=== PATIENT | male | born 1955 | race Caucasian/White ===

== ENCOUNTER 2016-10-08 15:06 | Emergency (ER) | payer OTHER ==
--- NOTE | 2016-10-08 15:30 | UCPHY ---
H & P Patient Type: Established Chief Complaint Nursing Narrative: c/o lower abd pain last night while sleeping - had freq normal BM's Time Seen by Provider: 10/08/16 15:29 HPI/ROS: 61-year-old male with a history of multiple episodes of diverticulitis last one in April 2015 presents complaining of lower abdominal pain that began last night. He states it is painful with bowel movements and with urination. He denies nausea vomiting diarrhea. He denies fever or chills Review of systems As per HPI General no fever no chills no weakness HEENT no eye pain no eye discharge. No eye redness, no sore throat Respiratory no cough, no shortness of breath Cardiac no chest pain, no peripheral edema GI positive abdominal pain, no diarrhea, no constipation, no nausea, no vomiting no flank pain, no hematuria, no dysuria Musculoskeletal no myalgias, no joint pain Heme no easy bruising, no easy bleeding Endo no polyuria, no polydipsia Skin no rashes, no pruritus Neuro no syncope, no dizziness, no headaches Psych is no suicidal ideation, no homicidal ideation Source: Patient Exam Limitations: No limitations - Personal History Current Tetanus Diphtheria and Acellular Pertussis (TDAP): Yes Tetanus Vaccine Date: 2011 - Medical/Surgical History Hx Asthma: No Hx Chronic Respiratory Disease: No Hx Diabetes: No Hx Cardiac Disease: Yes Hx Renal Disease: No Hx Cirrhosis: No Hx Alcoholism: No Hx HIV/AIDS: No Hx Splenectomy or Spleen Trauma: No Other PMH: REFLUX,DIVERTICULITIS, hyperlipidemia, depression - Family History Significant Family History: No pertinent family hx - Social History Smoking Status: Former smoker Alcohol Use: Occasionally Drug Use: None - Physical Exam Exam: 61-year-old male alert and oriented no acute distress nontoxic appearance afebrile HEENT atraumatic normocephalic, extraocular muscles intact, anicteric Oropharynx negative for erythema negative exudate, tolerating her own secretions Neck supple no meningismus Lungs clear to auscultation bilaterally Heart regular rate and rhythm without murmur rub or gallop Abdomen nondistended normoactive bowel sounds soft, positive left lower quadrant tenderness no guarding no rebound no pulsatile mass Back no CVA tenderness, no step-offs, no spinal tenderness Extremities no cyanosis clubbing or edema Neuro alert and oriented, no focal deficits Constitutional: Initial Vital Signs Temperature (C) 36.6 C 10/08/16 15:19 Heart Rate 69 10/08/16 15:19 Respiratory Rate 18 10/08/16 15:19 Blood Pressure 149/92 H 10/08/16 15:19 O2 Sat (%) 97 10/08/16 15:19 O2 Delivery Mode Room Air Allergies/Adverse Reactions: Penicillins Allergy (Verified 04/10/15 23:15) Home Medications: Medication Instructions Recorded Fluoxetine 04/10/15 Omeprazole 04/10/15 SIMVASTATIN 04/10/15 metroNIDAZOLE [Flagyl 500 mg (*)] 500 mg PO Q6 #80 tab 04/11/15 Hydrocodone/Acetaminophen [[place] 1 - 2 tab PO Q6H PRN #20 tab 10/08/16 5/325 (*)] Medical Decision Making - Diagnostics Imaging Results: Imaging Impressions Abdomen CT 10/08/16 16:35 Impression: 1. Sigmoid diverticulitis just distal to the location of previous diverticulitis from March,. No peridiverticular abscess. 2. Mild hepatic steatosis Findings discussed with Vani Tierney MD at 17:06 hour, 10/08/2016. ED Course/Re-evaluation: Patient seen and evaluated for lower abdominal pain with prior history of diverticulitis IV established lab sent 1 L normal saline given morphine 4 mg given Labs revealed slightly elevated white blood cell count with a normal shift Normal CMP normal lipase Normal urinalysis CT abdomen positive for diverticulitis negative for abscess negative for perforation Impression Uncomplicated diverticulitis Plan Antibiotics as per patient's [place] [facility], clindamycin and Bactrim Patient also given short-term supply of pain medication Follow-up with PCP and [place] [facility] - Data Points Laboratory Results: Laboratory Results 10/08/16 16:15 10/08/16 16:15 10/08/16 10/08/16 10/08/16 16:20 16:15 16:15 WBC 11.54 10^3/uL H 10^3/uL (3.80-9.50) RBC 4.11 10^6/uL L 10^6/uL (4.40-6.38) Hgb 13.9 g/dL g/dL (13.7-17.5) Hct 38.3 % L % (40.0-51.0) MCV 93.2 fL fL (81.5-99.8) MCH 33.8 pg pg (27.9-34.1) MCHC 36.3 g/dL g/dL (32.4-36.7) RDW 11.9 % % (11.5-15.2) Plt Count 254 10^3/uL 10^3/uL (150-400) MPV 9.2 fL fL (8.7-11.7) Neut % (Auto) 66.8 % % (39.3-74.2) Lymph % (Auto) 16.9 % % (15.0-45.0) [place] % (Auto) 14.4 % H % (4.5-13.0) Eos % (Auto) 1.2 % % (0.6-7.6) Baso % (Auto) 0.4 % % (0.3-1.7) Nucleat RBC Rel Count 0.0 % % (0.0-0.2) Absolute Neuts (auto) 7.71 10^3/uL H 10^3/uL (1.70-6.50) Absolute Lymphs (auto) 1.95 10^3/uL 10^3/uL (1.00-3.00) Absolute Monos (auto) 1.66 10^3/uL H 10^3/uL (0.30-0.80) Absolute Eos (auto) 0.14 10^3/uL 10^3/uL (0.03-0.40) Absolute Basos (auto) 0.05 10^3/uL 10^3/uL (0.02-0.10) Absolute Nucleated RBC 0.00 10^3/uL 10^3/uL (0-0.01) Immature Gran % 0.3 % % (0.0-1.1) Immature Gran # 0.03 10^3/uL 10^3/uL (0.00-0.10) Sodium 140 mEq/L mEq/L (134-144) Potassium 3.7 mEq/L mEq/L (3.5-5.2) Chloride 102 mEq/L mEq/L (97-110) Carbon Dioxide 23 mEq/l mEq/l (22-31) Anion Gap 15 mEq/L mEq/L (8-16) BUN 15 mg/dL mg/dL (7-23) Creatinine 0.9 mg/dL mg/dL (0.7-1.3) Estimated GFR > 60 Glucose 87 mg/dL mg/dL (70-100) Calcium 9.1 mg/dL mg/dL (8.5-10.4) Total Bilirubin 0.7 mg/dL mg/dL (0.1-1.4) AST 26 IU/L IU/L (17-59) ALT 56 IU/L IU/L (21-72) Alkaline Phosphatase 60 IU/L IU/L (38-126) Total Protein 7.0 g/dL g/dL (6.3-8.2) Albumin 3.8 g/dL g/dL (3.5-5.0) Urine Color YELLOW Urine Appearance CLEAR Urine pH 6.0 (5.0-7.5) Ur Specific [place] 1.025 (1.002-1.030) Urine Protein NEGATIVE (NEGATIVE) Urine Ketones NEGATIVE (NEGATIVE) Urine Blood NEGATIVE (NEGATIVE) Urine Nitrate NEGATIVE (NEGATIVE) Urine Bilirubin NEGATIVE (NEGATIVE) Urine Urobilinogen 0.2 EU EU (0.2-1.0) Ur Leukocyte Esterase NEGATIVE (NEGATIVE) Ur Culture Indicated? NOT INDICATED (NI) Urine Glucose NEGATIVE (NEGATIVE) Medications Given: Discontinued Medications Sodium Chloride (Ns) 1,000 mls @ 0 mls/hr IV ONCE ONE PRN Reason: Wide Open Stop: 10/08/16 16:06 Last Admin: 10/08/16 16:24 Dose: 1,000 mls Morphine Sulfate (Morphine) 4 mg IVP EDNOW ONE Stop: 10/08/16 16:32 Last Admin: 10/08/16 16:38 Dose: 4 mg Departure - Departure Disposition: Home, Routine, Self-Care Clinical Impression: Diverticulitis Condition: Good Instructions: Diverticulitis (ED) Referrals: Prateek Massey MD [Primary Care Provider] - As per Instructions Prescriptions: Hydrocodone/Acetaminophen [[place] 5/325 (*)] 1 - 2 tab PO Q6H PRN #20 tab PRN Reason: Pain, Moderate - PQRS PQRS Measurement: na
[2016-10-08] MEDS ORDERED: NS 1,000 ML IV ONE (16:05)
[2016-10-08 16:20] LABS: % IMMATURE GRANULYOCYTES 0.3 % (0.0-1.1); ABSOLUTE IMMATURE GRANULOCYTES 0.03 10^3/uL (0.00-0.10); ADD DIFF? NO; ADD MORPH? NO; ADD SCAN? NO; ATYPICAL LYMPHOCYTE FLAG 10 (0-99); FRAGMENT RBC FLAG 0 (0-99); HEMATOCRIT 38.3 % (40.0-51.0); HEMOGLOBIN 13.9 g/dL (13.7-17.5); LEFT SHIFT FLG 0 (0-99); LIPEMIA HEMOLYSIS FLAG 90 (0-99); MEAN CELL HEMOGLOBIN 33.8 pg (27.9-34.1); MEAN CELL HEMOGLOBIN CONCENTR. 36.3 g/dL (32.4-36.7); MEAN CELL VOLUME 93.2 fL (81.5-99.8); MEAN PLATELET VOLUME 9.2 fL (8.7-11.7); PLATELET CLUMPS FLAG 0 (0-99); PLATELET COUNT 254 10^3/uL (150-400); RED BLOOD CELL COUNT 4.11 10^6/uL (4.40-6.38); RED CELL DISTRIBUTION WIDTH 11.9 % (11.5-15.2)
[2016-10-08 16:25] LABS: COLOR YELLOW; LEUKOCYTE ESTERASE,URINE NEGATIVE (NEGATIVE); NITRITE,URINE NEGATIVE (NEGATIVE)
[2016-10-08 16:32] LABS: ALANINE AMINOTRANSFERASE 56 IU/L (21-72); ALBUMIN 3.8 g/dL (3.5-5.0); ALKALINE PHOSPHATASE 60 IU/L (38-126); ANION GAP 15 mEq/L (8-16); ASPARTATE AMINOTRANSFERASE 26 IU/L (17-59); BILIRUBIN,TOTAL 0.7 mg/dL (0.1-1.4); CALCIUM 9.1 mg/dL (8.5-10.4); CARBON DIOXIDE 23 mEq/l (22-31); CHLORIDE 102 mEq/L (97-110); CREATININE 0.9 mg/dL (0.7-1.3); GLOMERULAR FILTRATION RATE > 60; GLUCOSE 87 mg/dL (70-100); POTASSIUM 3.7 mEq/L (3.5-5.2); SODIUM 140 mEq/L (134-144)
[2016-10-08] MEDS ORDERED: IOPAMIDOL (ISOVUE-300) 100 ML BTL IV ONE (16:40)
[2016-10-08 17:44] VITALS: BP 157/89; PULSE 61; RESP 16; TEMP 99.3; O2SAT 98
== END 2016-10-08 17:43 | disposition home or self-care (01) ==
LOC: CED 15:06
DX: K57.32 Diverticulitis of large intestine without perforation or abscess without bleeding (principal)
CPT/HCPCS: 74177-PO; 80053-PO; 81003-PO; 85025-PO; 96361-PO; 96374-PO; 99205-PO; G0463-PO; Q9967